=== PATIENT | male | born 1970 | race Caucasian/White ===

== ENCOUNTER 2019-01-25 09:57 | Outpatient (RCR) | payer OTHER, SELFPAY ==
--- NOTE | 2019-01-25 12:52 | HP.PTEVAL ---
Patient's Visit Information LYNSEY MOORE is a 48 year old M referred to Physical Therapy by Brijesh Mc MD with a diagnosis of acute pain/thoracic-lumbar. Date of Evaluation: 01/25/19 Physical Therapist: OWEN Smith - Visit Plan Frequency: 1-2x /Week Duration: 3 Weeks Plan: Try next visit with a belt around his abdomin to support his abdominals and see if it is less pain for the pt to go supine to sit. 1-2X/ week for 3 weeks with HEP to increase core stability, Trunk ROM, stretching with a HEP and MT as needed. - Subjective Findings: No one seems to know what is wrong with his back. He has been dealing with the pain for 1.5 years. He has always had back pain from a few injuries but this is getting worse. He notices that when he lays down on his back he is in pain and takes it a longtime to relax and then hard to get out of bed. The pain is really intense in kidney area and he did pass some stones and the pain did not go away. The kidney was cleared. He went to a new Chiropractor and he did x-rays and scanner things and nothing showed up. He could not get off the table at the Chiropractor. He is able to get up and move but when he lays down on his stomach or back is impossible to get up. Chiropractor thinks that something is going on. Chiropractor wants to know what PT thinks. He talked to a few other people and they want him to see an internal medicine sarai and the internal sarai said that he had DDD. Internal medicine said no MRI until other steps. 3 years ago he got samenella and it was really bad ( october 2015) through out the course of that year, he got more crippled up and could not get stronger, back in the gym etc. His mom came up with reactive arthritis from samenella and had 2 round of antibiotics and did get relief from the pain and then the pain would come and go...... the pain would move around body parts. He feels that he has something in his back from the samenelaa. When laying down and go to get back up he uses his stomach muscles and then the back muscles and it would be like a lightening bolt ( hits him like 3 times when sitting up and getting to his feet). It takes him a minute to get out of bed and out of his room and he used to be able to move. It is just on his R side. 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 Has had a desk job for 20 years. No leg pain and no N&T. He has a TENS unit... it feels like when he cranks up the TENS unit but 10X worse. He has never done massage therapy. - Pain back pain Pain Intensity (Out of 10): 0 - Objective Trunk AROM: flex 75%, EXT 50%, SB B 75% ( increase pain when SB to the R but only a slight bit of pain). LE MMT: B hip flex 4+/5, B knee flex and ext 4+/5, Pt is able to walk on heels and toes. Pt had increase back pain lying in supine on the table and increase pain with very slight PT. Had the pt SKC with no pain. Had the pt DKC and the pt had a lot of pain... to the point he yelled out and kicked out his legs. It seems to be that the activities that contract his abdominals ( sit to supine, DKC all increased the spasm like pain in his back on the R side). LTR had no affect and either did standing trunk AROM. Pt does have a bulge in his abdomin when elio his abdominals I diastasis recti???). Tight B HS and gastroc - Goals Goal 1:: I HEP Goal Time Frame: 4-6 Weeks Goal 2:: Increase core stability to be able to transfer from supine to sit with having 50% less back spasm Goal Time Frame: 4-6 Weeks - Rehabilitation Potential Rehabilitation Potential: Fair - Anticipated Interventions Patient/Client Instruction: Educate patient on: Condition For the Purpose of:: To decrease pain, To increase ROM, To improve nutrient delivery to tissue, To improve muscle performance and motor function, To improve ability to perform ADL's, To increase tolerance to activity/condition/position, To increase flexibility/ROM Therapeutic Exercise to Include: Strength training, Flexibilty training, Active ROM, Dynamic Lumbar Stabilization For the Purpose of:: To decrease pain, To increase ROM, To improve nutrient delivery to tissue, To improve muscle performance and motor function, To improve ability to perform ADL's, To increase tolerance to activity/condition/position, To improve ability of physical actions for home/community/work/leisure, To improve health of tissue, To increase flexibility/ROM Manual Therapy Techniques to Include: Passive ROM, Soft tissue mobilization For the Purpose of:: To improve nutrient delivery to tissue, To increase flexibility/ROM Thank you for the opportunity to evaluate your patient. For Medicare and Medicare HMO plans, please review the plan of care and approve it. It will need to be FAXED BACK to us at [phone] for Medicare purposes. For Medicare only, by signing this I certify the plan of care. Please let me know if there are questions or concerns regarding this plan of care. Physician Signature: Date:
--- NOTE | 2019-03-27 15:50 | HP.PT.NRP ---
HP - Discharge Summary (1) - Patient Information LYNSEY MOORE was seen in my office for initial evaluation on 01/25/19. The following Plan of Care was established for this patient: Initial Frequency: 1-2x /Week Initial Duration: 3 Weeks - Anticipated Interventions Patient/Client Instruction: Educate patient on: Condition For the Purpose of:: To decrease pain, To increase ROM, To improve nutrient delivery to tissue, To improve muscle performance and motor function, To improve ability to perform ADL's, To increase tolerance to activity/condition/position, To increase flexibility/ROM Therapeutic Exercise to Include: Strength training, Flexibilty training, Active ROM, Dynamic Lumbar Stabilization For the Purpose of:: To decrease pain, To increase ROM, To improve nutrient delivery to tissue, To improve muscle performance and motor function, To improve ability to perform ADL's, To increase tolerance to activity/condition/position, To improve ability of physical actions for home/community/work/leisure, To improve health of tissue, To increase flexibility/ROM Manual Therapy Techniques to Include: Passive ROM, Soft tissue mobilization For the Purpose of:: To improve nutrient delivery to tissue, To increase flexibility/ROM This patient was last seen in our office 01/25/19. Pertinent comments regarding their Physical therapy will appear below: [facility] PT At this point I will be discontinuing this patient from physical therapy. I would be happy to see this patient again in the future if found appropriate by the physician. Thank you! Radha Mane, MPT
== END 2019-01-25 19:00 | disposition home or self-care (01) ==
LOC: PT 09:57
PROVIDERS: Family Provider Internal Medicine; PCP Internal Medicine; Referring Provider Chiropractor; Visit Provider Chiropractor
DX: M54.6 Pain in thoracic spine (principal); M54.5 Low back pain
CPT/HCPCS: 97162